=== PATIENT | male | born 1935 | race Two or more races ===

== ENCOUNTER 2017-06-24 11:32 | Inpatient (IN) | payer MEDICARE, MEDICAID ==
[~2017-06-24] VITALS: Ht 165.1 cm; Wt 56.8 kg
[~2017-06-24 11:32] MED LIST: DONE5TAB52 PO; IBUP-1222 PO; LISI-167 PO; MELA1TAB6 PO; TAMS0.4C2 PO
[2017-06-24] MEDS ORDERED: SODIUM CHLORIDE FLUSH 10ML SYR IVF ONE (12:00)
[2017-06-24] MEDS ORDERED: SODIUM CHLORIDE 0.9% 1,000ML IVBOLUS ONE (12:00)
[2017-06-24 12:48] LABS: BASOPHILS # (AUTO) 0.04 x10^3/uL (0-0.1); BASOPHILS % (AUTO) 0 % (0-1); EOSINOPHILS % (AUTO) 0 % (1-7); LYMPHOCYTES % (AUTO) 9 % (22-44); MD NO; MEAN CORPUSCULAR HEMOGLOBIN 31.2 pg (27.5-34.5); MEAN CORPUSCULAR HGB CONC 34.2 g/dL (33.2-36.2); MEAN CORPUSCULAR VOLUME 91.1 fL (81-97); MEAN PLATELET VOLUME 8.7 fL (7.4-10.4); MONOCYTES # (AUTO) 0.88 x10^3/uL (0.2-0.8); MONOCYTES % (AUTO) 8 % (2-9); NEUTROPHILS # (AUTO) 9.14 x10^3/uL (1.8-6.8); NEUTROPHILS % (AUTO) 83 % (42-75); PLATELET COUNT 250 x10^3/uL (130-400); RED BLOOD COUNT 4.76 x10^6/uL (4.38-5.82); RED CELL DISTRIBUTION WIDTH 13.8 % (9.4-14.8)
[2017-06-24 13:01] LABS: ALANINE AMINOTRANSFERASE 33 U/L (12-78); ALBUMIN 3.4 g/dL (3.4-5.0); ANION GAP 10 mmol/L (5-15); CALCIUM 8.9 mg/dL (8.5-10.1); CHLORIDE 108 mmol/L (98-107); CREATININE 1.09 mg/dL (0.7-1.3)
[2017-06-24 13:03] LABS: ALKALINE PHOSPHATASE 105 U/L (45-117); BILIRUBIN,TOTAL 0.8 mg/dL (0.2-1.0); TOTAL PROTEIN 7.4 g/dL (6.4-8.2)
[2017-06-24 15:51] LABS: MICROSCOPIC INDICATED
[2017-06-24 16:11] LABS: CULTURE INDICATED? NO
[2017-06-24] MEDS: NS + 20MEQ KCL 1,000 ML IV SCH (17:26)
[2017-06-24] MEDS: IBUPROFEN 600 MG TABLET PO SCH (17:30)
[2017-06-24] MEDS ORDERED: POLYETHYLENE GLYCOL 17 GM PACKET PO PRN (17:30)
[2017-06-24] MEDS ORDERED: SODIUM CHLORIDE FLUSH 10ML SYR IVF PRN (17:30)
[2017-06-24] MEDS ORDERED: ENALAPRILAT 1.25 MG/ML, 2ML IVPush PRN (17:30)
[2017-06-24] MEDS ORDERED: ONDANSETRON 2MG/ML, 2ML IVPush PRN (17:30)
[2017-06-24] MEDS ORDERED: DOCUSATE 100 MG CAPSULE PO PRN (17:30)
[2017-06-24] MEDS ORDERED: ACETAMINOPHEN 325 MG TABLET PO PRN (17:30)
[2017-06-24] MEDS ORDERED: BISACODYL 10 MG SUPP PR PRN (17:30)
[2017-06-24 18:23] LABS: FOLATE LEVEL 19.2 ng/mL (3.1-17.5)
[2017-06-24] MEDS ORDERED: IBUPROFEN 200 MG TABLET ONE (18:34)
[2017-06-24] MEDS ORDERED: ENOXAPARIN 40 MG/0.4 ML ONE (18:34)
[2017-06-24] MEDS: ENOXAPARIN 40 MG/0.4 ML SQ SCH (18:39)
[2017-06-24 20:30] VITALS: BP 160/82
[2017-06-25] MEDS: LISINOPRIL 10 MG TABLET PO SCH ×3 (01:07→20:13)
[2017-06-25] MEDS: IBUPROFEN 600 MG TABLET PO SCH ×2 (01:07→07:00)
[2017-06-25] MEDS: NS + 20MEQ KCL 1,000 ML IV SCH (01:07)
[2017-06-25 01:10] VITALS: BP 130/72
[2017-06-25 05:59] LABS: CHLORIDE 113 mmol/L (98-107)
[2017-06-25 06:09] LABS: BASOPHILS # (AUTO) 0.02 x10^3/uL (0-0.1); BASOPHILS % (AUTO) 0 % (0-1); EOSINOPHILS # (AUTO) 0.05 x10^3/uL (0-0.4); EOSINOPHILS % (AUTO) 1 % (1-7); LYMPHOCYTES # (AUTO) 1.64 x10^3/uL (1-3.4); LYMPHOCYTES % (AUTO) 21 % (22-44); MD NO; MEAN CORPUSCULAR HEMOGLOBIN 30.9 pg (27.5-34.5); MEAN CORPUSCULAR HGB CONC 33.9 g/dL (33.2-36.2); MEAN CORPUSCULAR VOLUME 91.4 fL (81-97); MEAN PLATELET VOLUME 9.5 fL (7.4-10.4); MONOCYTES # (AUTO) 0.88 x10^3/uL (0.2-0.8); MONOCYTES % (AUTO) 11 % (2-9); NEUTROPHILS % (AUTO) 67 % (42-75); PLATELET COUNT 215 x10^3/uL (130-400); RED BLOOD COUNT 4.24 x10^6/uL (4.38-5.82); RED CELL DISTRIBUTION WIDTH 13.6 % (9.4-14.8)
[2017-06-25 06:22] LABS: ALANINE AMINOTRANSFERASE 39 U/L (12-78); ALBUMIN 2.8 g/dL (3.4-5.0); ALKALINE PHOSPHATASE 85 U/L (45-117); ANION GAP 8 mmol/L (5-15); CREATININE 0.75 mg/dL (0.7-1.3); TOTAL PROTEIN 6.2 g/dL (6.4-8.2)
[2017-06-25] MEDS ORDERED: POTASSIUM CHLORIDE 20 MEQ TAB.ER.PRT PO ONE (09:00)
[2017-06-25 09:11] VITALS: BP 137/77
[2017-06-25] MEDS: TAMSULOSIN 0.4 MG CAP.ER.24H PO SCH (11:42)
[2017-06-25] MEDS: DONEPEZIL 5 MG TABLET PO SCH (11:42)
[2017-06-25 14:48] VITALS: BP 161/82
[2017-06-25] MEDS: ENOXAPARIN 40 MG/0.4 ML SQ SCH (17:30)
[2017-06-25 18:33] VITALS: BP 143/74
[2017-06-26 01:30] VITALS: BP 138/80
[2017-06-26 07:14] VITALS: BP 178/88
[2017-06-26] MEDS: DONEPEZIL 5 MG TABLET PO SCH (09:22)
[2017-06-26] MEDS: TAMSULOSIN 0.4 MG CAP.ER.24H PO SCH (09:22)
[2017-06-26] MEDS: LISINOPRIL 10 MG TABLET PO SCH ×2 (09:22→21:20)
[2017-06-26 14:55] VITALS: BP 152/75
[2017-06-26] MEDS: ENOXAPARIN 40 MG/0.4 ML SQ SCH (17:25)
[2017-06-26 19:44] VITALS: BP 158/82
[2017-06-26] MEDS ORDERED: DIPHENHYDRAMINE 25 MG CAPSULE ONE (21:41)
[2017-06-26] MEDS ORDERED: DIPHENHYDRAMINE 25 MG CAPSULE PO ONE (22:00)
[2017-06-26] MEDS ORDERED: ZIPRASIDONE 20 MG INJ IM ONE (22:30)
[2017-06-26 23:26] VITALS: BP 160/85
[2017-06-27 08:20] VITALS: BP 154/77
[2017-06-27] MEDS: DONEPEZIL 5 MG TABLET PO SCH (08:47)
[2017-06-27] MEDS: TAMSULOSIN 0.4 MG CAP.ER.24H PO SCH (08:47)
[2017-06-27] MEDS: LISINOPRIL 10 MG TABLET PO SCH ×2 (08:48→19:39)
[2017-06-27 14:11] VITALS: BP 131/71
[2017-06-27] MEDS: ENOXAPARIN 40 MG/0.4 ML SQ SCH (17:31)
[2017-06-27 19:37] VITALS: BP 145/74
[2017-06-28 02:46] VITALS: BP 160/78
[2017-06-28 06:50] VITALS: BP 165/84
[2017-06-28] MEDS: TAMSULOSIN 0.4 MG CAP.ER.24H PO SCH (09:15)
[2017-06-28] MEDS: DONEPEZIL 5 MG TABLET PO SCH (09:15)
[2017-06-28] MEDS: LISINOPRIL 10 MG TABLET PO SCH ×2 (09:15→20:55)
[2017-06-28 14:28] VITALS: BP 123/66
[2017-06-28] MEDS: ENOXAPARIN 40 MG/0.4 ML SQ SCH (17:54)
[2017-06-28 19:29] VITALS: BP 142/72
[2017-06-29 01:45] VITALS: BP 172/87
[2017-06-29 07:12] VITALS: BP 175/87
[2017-06-29] MEDS: TAMSULOSIN 0.4 MG CAP.ER.24H PO SCH (08:59)
[2017-06-29] MEDS: DONEPEZIL 5 MG TABLET PO SCH (08:59)
[2017-06-29] MEDS: LISINOPRIL 10 MG TABLET PO SCH (09:00)
[2017-06-29 12:54] VITALS: BP 156/76
[2017-06-29] MEDS: ENOXAPARIN 40 MG/0.4 ML SQ SCH (17:10)
[2017-06-29 19:22] VITALS: BP 149/72
== END 2017-06-29 20:40 | disposition home or self-care (01) | DRG 884 ==
LOC: ED 16:04 → EDIP 17:13 → 3NE 21:00
PROVIDERS: ADMIT Hospitalist; ATTEND Hospitalist
DX: F03.90 Unspecified dementia, unspecified severity, without behavioral disturbance, psychotic disturbance, mood disturbance, and anxiety (principal); E86.0 Dehydration; D64.9 Anemia, unspecified; E44.1 Mild protein-calorie malnutrition; D72.828 Other elevated white blood cell count; S00.93XA Contusion of unspecified part of head, initial encounter; R31.9 Hematuria, unspecified; R29.6 Repeated falls; I11.9 Hypertensive heart disease without heart failure; K76.0 Fatty (change of) liver, not elsewhere classified; Z82.49 Family history of ischemic heart disease and other diseases of the circulatory system; Z85.038 Personal history of other malignant neoplasm of large intestine; Z87.891 Personal history of nicotine dependence; Z68.20 Body mass index [BMI] 20.0-20.9, adult
CPT/HCPCS: 36415; 70450; 70486; 71045; 72125; 76700; 80053; 81001; 82607; 82746; 84443; 85014; 85018; 85025; 93005; 96372; 96374; J1650; J3480; J7030; Q0163

== ENCOUNTER 2017-10-18 19:06 | Inpatient (IN) | payer MEDICARE, MEDICAID ==
[~2017-10-18] VITALS: Ht 170.2 cm; Wt 54.9 kg
[2017-10-18 19:53] LABS: MEAN CORPUSCULAR HEMOGLOBIN 30.6 pg (27.5-34.5); MEAN CORPUSCULAR HGB CONC 33.6 g/dL (33.2-36.2); MEAN CORPUSCULAR VOLUME 90.8 fL (81-97); MEAN PLATELET VOLUME 7.6 fL (7.4-10.4); PLATELET COUNT 366 x10^3/uL (130-400); RED BLOOD COUNT 4.04 x10^6/uL (4.38-5.82); RED CELL DISTRIBUTION WIDTH 13.8 % (9.4-14.8)
[2017-10-18 20:01] LABS: ALBUMIN 2.4 g/dL (3.4-5.0); ANION GAP 10 mmol/L (5-15); CALCIUM 7.7 mg/dL (8.5-10.1); CHLORIDE 106 mmol/L (98-107); CREATININE 2.54 mg/dL (0.7-1.3)
[2017-10-18] MEDS ORDERED: vancomycin PO (20:11)
[2017-10-18] MEDS ORDERED: QUET25TA5 PO (20:11)
[2017-10-18] MEDS ORDERED: SODIUM CHLORIDE 0.9% 1,000ML IVBOLUS ONE ×2 (20:30→21:30)
[2017-10-18 20:45] LABS: MD YES
[2017-10-18 20:48] LABS: BAND#(MANUAL) 3.55 x10^3/uL; BANDS%(MANUAL) 18 % (0-7); LYMPH#(MANUAL) 1.18 x10^3/uL (1-3.4); LYMPHS% (MANUAL) 6 % (22-44); MONOS#(MANUAL) 0.39 x10^3/uL (0.3-2.7); MONOS% (MANUAL) 2 % (2-9); SEGS% (MANUAL) 74 % (42-75)
[2017-10-18 20:50] LABS: <PLATELET ESTIMATE> ADEQUATE; <PLT MORPHOLOGY> NORMAL PLT MORPH; <RBC MORPHOLOGY> NORMAL
[2017-10-18 20:56] LABS: MICROSCOPIC INDICATED
[2017-10-18 20:57] LABS: CULTURE INDICATED? YES
[2017-10-18] MEDS ORDERED: PIPERACILLIN/TAZO/PMX 3.375GM 50 ML ONE (21:27)
[2017-10-18] MEDS ORDERED: PIPERACILLIN/TAZO/PMX 3.375GM 50 ML IVPB ONE (21:30)
[2017-10-18] MEDS ORDERED: VANCOMYCIN PER PHARMACY MC ONE (21:30)
[2017-10-18] MEDS ORDERED: SODIUM CHLORIDE 0.9% 1,000 ML IV ONE (21:48)
[2017-10-18] MEDS ORDERED: PHARMACOKINETIC MONITORING MC PRN (22:00)
[2017-10-18] MEDS ORDERED: VANCOMYCIN 1,200 MG in SODIUM CHLORIDE 0.9% 250 ML IV ONE (22:00)
[2017-10-18] MEDS ORDERED: VANCOMYCIN PO SCH (23:00)
[2017-10-18] MEDS ORDERED: ONDANSETRON 2MG/ML, 2ML IVPush PRN (23:00)
[2017-10-18] MEDS ORDERED: ACETAMINOPHEN 325 MG TABLET PO PRN (23:00)
[2017-10-18] MEDS: D5%-0.9% NACL 1,000 ML IV SCH (23:07)
[2017-10-18 23:09] VITALS: BP 136/82
[2017-10-18] MEDS: VANCOMYCIN 50 MG/ML ORAL SUSP PO SCH (23:59)
[2017-10-19 01:16] VITALS: BP 147/79
[2017-10-19 02:41] LABS: CLOSTRIDIUM DIFFICILE ANTIGEN NEGATIVE; CLOSTRIDIUM DIFFICILE TOXIN NEGATIVE (Negative)
[2017-10-19] MEDS: VANCOMYCIN 50 MG/ML ORAL SUSP PO SCH ×3 (05:12→18:22)
[2017-10-19 05:46] LABS: BASOPHILS # (AUTO) 0.04 x10^3/uL (0-0.1); BASOPHILS % (AUTO) 0 % (0-1); EOSINOPHILS # (AUTO) 0.04 x10^3/uL (0-0.4); EOSINOPHILS % (AUTO) 0 % (1-7); LYMPHOCYTES # (AUTO) 1.05 x10^3/uL (1-3.4); LYMPHOCYTES % (AUTO) 6 % (22-44); MD NO; MEAN CORPUSCULAR HEMOGLOBIN 30.9 pg (27.5-34.5); MEAN CORPUSCULAR HGB CONC 33.9 g/dL (33.2-36.2); MEAN CORPUSCULAR VOLUME 91.1 fL (81-97); MEAN PLATELET VOLUME 7.9 fL (7.4-10.4); MONOCYTES # (AUTO) 0.84 x10^3/uL (0.2-0.8); MONOCYTES % (AUTO) 5 % (2-9); NEUTROPHILS # (AUTO) 14.43 x10^3/uL (1.8-6.8); NEUTROPHILS % (AUTO) 88 % (42-75); PLATELET COUNT 362 x10^3/uL (130-400); RED BLOOD COUNT 3.62 x10^6/uL (4.38-5.82); RED CELL DISTRIBUTION WIDTH 13.7 % (9.4-14.8)
[2017-10-19 05:55] LABS: ALBUMIN 2.1 g/dL (3.4-5.0); ANION GAP 8 mmol/L (5-15); CALCIUM 7.2 mg/dL (8.5-10.1); CHLORIDE 112 mmol/L (98-107)
[2017-10-19 05:59] LABS: ALANINE AMINOTRANSFERASE 21 U/L (12-78); ALKALINE PHOSPHATASE 75 U/L (45-117); BILIRUBIN,TOTAL 0.5 mg/dL (0.2-1.0); CREATININE 1.74 mg/dL (0.7-1.3); TOTAL PROTEIN 5.4 g/dL (6.4-8.2)
[2017-10-19 07:22] VITALS: BP 142/83
[2017-10-19] MEDS: QUETIAPINE 25MG TABLET PO SCH (08:19)
[2017-10-19] MEDS: HEPARIN 5,000 UNITS/ML, 1ML SQ SCH ×2 (08:19→20:38)
[2017-10-19] MEDS: D5%-0.9% NACL 1,000 ML IV SCH ×2 (08:19→20:43)
[2017-10-19] MEDS: POTASSIUM CHLORIDE 20 MEQ PACKET PO SCH ×2 (10:27→20:37)
[2017-10-19 14:12] VITALS: BP 139/86
[2017-10-19 20:48] VITALS: BP 156/83
[2017-10-20 00:55] VITALS: BP 142/72
[2017-10-20] MEDS: VANCOMYCIN 50 MG/ML ORAL SUSP PO SCH ×4 (00:59→18:02)
[2017-10-20] MEDS: D5%-0.9% NACL 1,000 ML IV SCH ×2 (06:18→17:00)
[2017-10-20 06:50] VITALS: BP 139/78
[2017-10-20 09:26] LABS: ANION GAP 4 mmol/L (5-15); CALCIUM 7.2 mg/dL (8.5-10.1); CHLORIDE 114 mmol/L (98-107)
[2017-10-20 09:36] LABS: BASOPHILS # (AUTO) 0.02 x10^3/uL (0-0.1); BASOPHILS % (AUTO) 0 % (0-1); EOSINOPHILS # (AUTO) 0.05 x10^3/uL (0-0.4); EOSINOPHILS % (AUTO) 1 % (1-7); LYMPHOCYTES # (AUTO) 1.16 x10^3/uL (1-3.4); LYMPHOCYTES % (AUTO) 17 % (22-44); MD SCAN; MEAN CORPUSCULAR HEMOGLOBIN 30.1 pg (27.5-34.5); MEAN CORPUSCULAR HGB CONC 33.3 g/dL (33.2-36.2); MEAN CORPUSCULAR VOLUME 90.2 fL (81-97); MEAN PLATELET VOLUME 7.4 fL (7.4-10.4); MONOCYTES # (AUTO) 0.49 x10^3/uL (0.2-0.8); MONOCYTES % (AUTO) 7 % (2-9); NEUTROPHILS # (AUTO) 5.27 x10^3/uL (1.8-6.8); NEUTROPHILS % (AUTO) 75 % (42-75); PLATELET COUNT 316 x10^3/uL (130-400); RED BLOOD COUNT 3.66 x10^6/uL (4.38-5.82); RED CELL DISTRIBUTION WIDTH 13.4 % (9.4-14.8)
[2017-10-20] MEDS: HEPARIN 5,000 UNITS/ML, 1ML SQ SCH ×2 (10:15→20:57)
[2017-10-20] MEDS: POTASSIUM CHLORIDE 20 MEQ PACKET PO SCH ×2 (10:15→20:57)
[2017-10-20] MEDS: QUETIAPINE 25MG TABLET PO SCH (10:15)
[2017-10-20] MEDS ORDERED: CEFTRIAXONE PMX 1GM/50ML 50 ML IV SCH (13:00)
[2017-10-20 13:43] VITALS: BP 134/83
[2017-10-20 20:00] VITALS: BP 176/95
[2017-10-21] MEDS: VANCOMYCIN 50 MG/ML ORAL SUSP PO SCH ×2 (00:25→05:24)
[2017-10-21] MEDS: D5%-0.9% NACL 1,000 ML IV SCH (00:31)
[2017-10-21 01:22] VITALS: BP 176/91
[2017-10-21 07:04] VITALS: BP 168/83
[2017-10-21 09:05] LABS: BASOPHILS # (AUTO) 0.02 x10^3/uL (0-0.1); BASOPHILS % (AUTO) 0 % (0-1); EOSINOPHILS # (AUTO) 0.07 x10^3/uL (0-0.4); EOSINOPHILS % (AUTO) 1 % (1-7); LYMPHOCYTES # (AUTO) 1.16 x10^3/uL (1-3.4); LYMPHOCYTES % (AUTO) 21 % (22-44); MD NO; MEAN CORPUSCULAR HEMOGLOBIN 30.3 pg (27.5-34.5); MEAN CORPUSCULAR HGB CONC 33.5 g/dL (33.2-36.2); MEAN CORPUSCULAR VOLUME 90.4 fL (81-97); MEAN PLATELET VOLUME 7.9 fL (7.4-10.4); MONOCYTES # (AUTO) 0.52 x10^3/uL (0.2-0.8); MONOCYTES % (AUTO) 10 % (2-9); NEUTROPHILS % (AUTO) 68 % (42-75); PLATELET COUNT 343 x10^3/uL (130-400); RED BLOOD COUNT 3.97 x10^6/uL (4.38-5.82); RED CELL DISTRIBUTION WIDTH 13.5 % (9.4-14.8)
[2017-10-21] MEDS: QUETIAPINE 25MG TABLET PO SCH (09:06)
[2017-10-21] MEDS: HEPARIN 5,000 UNITS/ML, 1ML SQ SCH (09:06)
[2017-10-21] MEDS: POTASSIUM CHLORIDE 20 MEQ PACKET PO SCH (09:06)
[2017-10-21 09:15] LABS: ALBUMIN 2.2 g/dL (3.4-5.0); ANION GAP 5 mmol/L (5-15); CALCIUM 7.5 mg/dL (8.5-10.1); CHLORIDE 112 mmol/L (98-107); CREATININE 0.68 mg/dL (0.7-1.3)
[2017-10-21] MEDS ORDERED: SULF1TAB24 PO (10:07)
== END 2017-10-21 14:42 | DRG 871 ==
LOC: SUATTDRO 22:02 → ED 22:14 → EDIP 22:15 → 4EST 22:40
PROVIDERS: ADMIT Hospitalist; ATTEND Hospitalist
DX: A41.9 Sepsis, unspecified organism (principal); N17.0 Acute kidney failure with tubular necrosis; E43 Unspecified severe protein-calorie malnutrition; R57.9 Shock, unspecified; J18.9 Pneumonia, unspecified organism; A04.72 Enterocolitis due to Clostridium difficile, not specified as recurrent; S09.90XA Unspecified injury of head, initial encounter; D63.8 Anemia in other chronic diseases classified elsewhere; F03.90 Unspecified dementia, unspecified severity, without behavioral disturbance, psychotic disturbance, mood disturbance, and anxiety; N39.0 Urinary tract infection, site not specified; Z68.1 Body mass index [BMI] 19.9 or less, adult; R65.10 Systemic inflammatory response syndrome (SIRS) of non-infectious origin without acute organ dysfunction; W01.0XXA Fall on same level from slipping, tripping and stumbling without subsequent striking against object, initial encounter; E87.6 Hypokalemia; B96.1 Klebsiella pneumoniae [K. pneumoniae] as the cause of diseases classified elsewhere; S00.212A Abrasion of left eyelid and periocular area, initial encounter; M19.90 Unspecified osteoarthritis, unspecified site; S80.212A Abrasion, left knee, initial encounter; S80.211A Abrasion, right knee, initial encounter; R29.6 Repeated falls; I10 Essential (primary) hypertension; Z82.49 Family history of ischemic heart disease and other diseases of the circulatory system; Z85.038 Personal history of other malignant neoplasm of large intestine; Y93.89 Activity, other specified; Y92.89 Other specified places as the place of occurrence of the external cause; Y99.8 Other external cause status; Z66 Do not resuscitate
CPT/HCPCS: 36415; 70450; 71045; 72125; 80048; 80053; 81001; 82040; 83605; 83735; 84100; 84145; 85025; 87040; 87077; 87086; 87186; 87324; 96361; 96365; J0696; J1644; J2543; J3370; J7042; J7030

== ENCOUNTER 2017-11-11 16:28 | Inpatient (IN) | payer MEDICARE, MEDICAID ==
[~2017-11-11] VITALS: Ht 160 cm; Wt 50.6 kg
[~2017-11-11 16:28] MED LIST changes: +QUET25TA5 PO; +SULF1TAB24 PO; +vancomycin PO
[2017-11-11 17:48] LABS: BASOPHILS # (AUTO) 0.03 x10^3/uL (0-0.1); BASOPHILS % (AUTO) 0 % (0-1); EOSINOPHILS # (AUTO) 0.21 x10^3/uL (0-0.4); EOSINOPHILS % (AUTO) 3 % (1-7); LYMPHOCYTES # (AUTO) 1.42 x10^3/uL (1-3.4); LYMPHOCYTES % (AUTO) 21 % (22-44); MEAN CORPUSCULAR HEMOGLOBIN 30.5 pg (27.5-34.5); MEAN CORPUSCULAR HGB CONC 33.1 g/dL (33.2-36.2); MEAN CORPUSCULAR VOLUME 91.9 fL (81-97); MEAN PLATELET VOLUME 8.4 fL (7.4-10.4); MONOCYTES # (AUTO) 0.78 x10^3/uL (0.2-0.8); MONOCYTES % (AUTO) 12 % (2-9); NEUTROPHILS % (AUTO) 64 % (42-75); PLATELET COUNT 349 x10^3/uL (130-400); RED BLOOD COUNT 4.38 x10^6/uL (4.38-5.82); RED CELL DISTRIBUTION WIDTH 14.5 % (9.4-14.8)
[2017-11-11 17:49] LABS: MD NO
[2017-11-11 17:53] LABS: ALBUMIN 2.7 g/dL (3.4-5.0); ANION GAP 7 mmol/L (5-15); CALCIUM 8.5 mg/dL (8.5-10.1); CHLORIDE 108 mmol/L (98-107)
[2017-11-11 17:59] LABS: CREATININE 1.23 mg/dL (0.7-1.3)
[2017-11-11] MEDS ORDERED: OMNIPAQUE 350 MG/ML, 100ML BOTTLE ONE (19:00)
[2017-11-11] MEDS ORDERED: CEFTRIAXONE PMX 1GM/50ML 50 ML IVPB ONE (19:30)
[2017-11-11] MEDS ORDERED: AZITHROMYCIN 500 MG in SODIUM CHLORIDE 0.9% 250 ML IVPB ONE (19:30)
[2017-11-11] MEDS ORDERED: CEFTRIAXONE PMX 1GM/50ML 50 ML ONE (19:33)
[2017-11-11] MEDS ORDERED: SODIUM CHLORIDE FLUSH 10ML SYR IVF PRN (20:00)
[2017-11-11] MEDS ORDERED: NS + 20MEQ KCL 1,000 ML IV SCH (20:09)
[2017-11-11] MEDS ORDERED: ONDANSETRON 2MG/ML, 2ML IVPush PRN (20:30)
[2017-11-11] MEDS ORDERED: POLYETHYLENE GLYCOL 17 GM PACKET PO PRN (20:30)
[2017-11-11] MEDS ORDERED: ACETAMINOPHEN 325 MG TABLET PO PRN (20:30)
[2017-11-11] MEDS ORDERED: morphine SULFATE 10 MG/ML, 1ML IVPush PRN (20:30)
[2017-11-11] MEDS ORDERED: HYDROcodone/APAP 5/325 TABLET PO PRN (20:30)
[2017-11-11] MEDS ORDERED: DOCUSATE 100 MG CAPSULE PO PRN (20:30)
[2017-11-11 20:50] VITALS: BP 161/84
[2017-11-11] MEDS: VANCOMYCIN 50 MG/ML ORAL SUSP PO SCH (22:13)
[2017-11-11] MEDS: ENOXAPARIN 40 MG/0.4 ML SQ SCH (22:14)
[2017-11-11] MEDS: LISINOPRIL 10 MG TABLET PO SCH (22:14)
[2017-11-11 23:35] VITALS: BP 161/84
[2017-11-12 01:50] VITALS: BP_SYST 156; BP_SYST 161; BP_DIAS 80; BP_DIAS 84
[2017-11-12] MEDS: VANCOMYCIN 50 MG/ML ORAL SUSP PO SCH ×4 (02:34→20:54)
[2017-11-12 07:38] VITALS: BP 166/86
[2017-11-12] MEDS: LISINOPRIL 10 MG TABLET PO SCH ×2 (09:10→20:55)
[2017-11-12] MEDS: SENNA/DOCUSATE TABLET PO SCH (09:10)
[2017-11-12 09:26] LABS: INTERNATIONAL NORMALIZED RATIO 1.24 (0.93-1.1); PROTHROMBIN TIME 12.7 Seconds (9.6-11.5)
[2017-11-12 15:32] VITALS: BP 172/83
[2017-11-12 16:10] VITALS: BP 149/79
[2017-11-12 20:21] VITALS: BP 179/87
[2017-11-12] MEDS: ENOXAPARIN 40 MG/0.4 ML SQ SCH (20:30)
[2017-11-12] MEDS: CEFTRIAXONE PMX 1GM/50ML 50 ML IV SCH (20:54)
[2017-11-12] MEDS: AZITHROMYCIN 500 MG in SODIUM CHLORIDE 0.9% 250 ML IV SCH (22:00)
[2017-11-13 00:49] VITALS: BP 152/74
[2017-11-13] MEDS: VANCOMYCIN 50 MG/ML ORAL SUSP PO SCH ×4 (03:32→20:47)
[2017-11-13] MEDS: SENNA/DOCUSATE TABLET PO SCH (08:34)
[2017-11-13 08:46] VITALS: BP 154/85
[2017-11-13] MEDS: LISINOPRIL 10 MG TABLET PO SCH ×2 (08:49→20:47)
[2017-11-13 14:23] VITALS: BP 159/78
[2017-11-13] MEDS: LACTOBACILLUS CHEW TABLET PO SCH ×2 (17:23→20:47)
[2017-11-13 20:31] VITALS: BP 159/88
[2017-11-13] MEDS: ENOXAPARIN 40 MG/0.4 ML SQ SCH (20:47)
[2017-11-13] MEDS: CEFTRIAXONE PMX 1GM/50ML 50 ML IV SCH (20:47)
[2017-11-13] MEDS: AZITHROMYCIN 500 MG in SODIUM CHLORIDE 0.9% 250 ML IV SCH (22:24)
[2017-11-14 00:13] VITALS: BP 131/76
[2017-11-14] MEDS: VANCOMYCIN 50 MG/ML ORAL SUSP PO SCH ×4 (01:56→20:45)
[2017-11-14] MEDS ORDERED: ZIPRASIDONE 20 MG INJ IM ONE (04:30)
[2017-11-14 07:05] VITALS: BP 151/81
[2017-11-14] MEDS: SENNA/DOCUSATE TABLET PO SCH (08:41)
[2017-11-14] MEDS: LACTOBACILLUS CHEW TABLET PO SCH ×3 (08:41→20:44)
[2017-11-14] MEDS: LISINOPRIL 10 MG TABLET PO SCH ×2 (08:42→20:45)
[2017-11-14] MEDS ORDERED: ACID1TAB7 PO (13:29)
[2017-11-14 14:06] VITALS: BP 150/76
[2017-11-14 19:40] VITALS: BP 166/86
[2017-11-14] MEDS: ENOXAPARIN 40 MG/0.4 ML SQ SCH (20:44)
[2017-11-14] MEDS: AZITHROMYCIN 500 MG in SODIUM CHLORIDE 0.9% 250 ML IV SCH (20:45)
[2017-11-14] MEDS: CEFTRIAXONE PMX 1GM/50ML 50 ML IV SCH (22:02)
[2017-11-15 01:21] VITALS: BP 165/89
[2017-11-15] MEDS: VANCOMYCIN 50 MG/ML ORAL SUSP PO SCH ×4 (02:30→22:47)
[2017-11-15] MEDS: LISINOPRIL 10 MG TABLET PO SCH ×2 (08:23→22:47)
[2017-11-15] MEDS: SENNA/DOCUSATE TABLET PO SCH (08:23)
[2017-11-15] MEDS: LACTOBACILLUS CHEW TABLET PO SCH ×3 (08:23→22:47)
[2017-11-15 09:23] VITALS: BP 153/78
[2017-11-15] MEDS ORDERED: CEFD300C37 PO (13:13)
[2017-11-15 14:35] VITALS: BP 134/74
[2017-11-15 19:49] VITALS: BP 154/73
[2017-11-15] MEDS: ENOXAPARIN 40 MG/0.4 ML SQ SCH (22:46)
[2017-11-15] MEDS: CEFTRIAXONE PMX 1GM/50ML 50 ML IV SCH (22:46)
[2017-11-15] MEDS: AZITHROMYCIN 500 MG in SODIUM CHLORIDE 0.9% 250 ML IV SCH (23:34)
[2017-11-16 01:12] VITALS: BP 158/83
[2017-11-16] MEDS: VANCOMYCIN 50 MG/ML ORAL SUSP PO SCH ×4 (03:27→20:27)
[2017-11-16 07:06] VITALS: BP 174/81
[2017-11-16] MEDS: LACTOBACILLUS CHEW TABLET PO SCH ×3 (08:48→20:26)
[2017-11-16] MEDS: SENNA/DOCUSATE TABLET PO SCH (08:48)
[2017-11-16] MEDS: LISINOPRIL 10 MG TABLET PO SCH ×2 (08:49→20:27)
[2017-11-16 12:43] VITALS: BP 152/80
[2017-11-16 19:26] VITALS: BP 162/70
[2017-11-16] MEDS: CEFTRIAXONE PMX 1GM/50ML 50 ML IV SCH (20:26)
[2017-11-16] MEDS: ENOXAPARIN 40 MG/0.4 ML SQ SCH (20:27)
[2017-11-16] MEDS: AZITHROMYCIN 500 MG in SODIUM CHLORIDE 0.9% 250 ML IV SCH (23:07)
[2017-11-17] MEDS: VANCOMYCIN 50 MG/ML ORAL SUSP PO SCH ×3 (02:18→14:50)
[2017-11-17 02:44] VITALS: BP 134/84
[2017-11-17 08:45] VITALS: BP 136/73
[2017-11-17] MEDS: LACTOBACILLUS CHEW TABLET PO SCH (08:47)
[2017-11-17] MEDS: SENNA/DOCUSATE TABLET PO SCH (08:47)
[2017-11-17] MEDS: LISINOPRIL 10 MG TABLET PO SCH (08:54)
[2017-11-17] MEDS ORDERED: VANC1VIA3 PO (12:08)
[2017-11-17] MEDS ORDERED: AZIT500T5 PO (12:10)
[2017-11-17 14:00] VITALS: BP 171/82
== END 2017-11-17 17:14 | DRG 193 ==
LOC: ED 19:30 → EDIP 19:54 → 3NE 20:31
PROVIDERS: ADMIT Family Medicine; ATTEND Internal Medicine
DX: J18.1 Lobar pneumonia, unspecified organism (principal); E43 Unspecified severe protein-calorie malnutrition; S22.42XA Multiple fractures of ribs, left side, initial encounter for closed fracture; C64.2 Malignant neoplasm of left kidney, except renal pelvis; Z94.0 Kidney transplant status; Z68.1 Body mass index [BMI] 19.9 or less, adult; R29.6 Repeated falls; Z66 Do not resuscitate; I10 Essential (primary) hypertension; F03.90 Unspecified dementia, unspecified severity, without behavioral disturbance, psychotic disturbance, mood disturbance, and anxiety; Z85.038 Personal history of other malignant neoplasm of large intestine; Z91.81 History of falling; Z82.49 Family history of ischemic heart disease and other diseases of the circulatory system; Y93.89 Activity, other specified; Y92.89 Other specified places as the place of occurrence of the external cause; Y99.8 Other external cause status; Z90.49 Acquired absence of other specified parts of digestive tract; N28.89 Other specified disorders of kidney and ureter
CPT/HCPCS: 36415; 71045; 71260; 80048; 82040; 83605; 84145; 85025; 85610; 87040; 99285; J0456; J0696; J1650; J3370; J3480; Q9967; J7050

== ENCOUNTER 2017-12-29 16:13 | Inpatient (IN) | payer MEDICARE, MEDICAID ==
[~2017-12-29] VITALS: Ht 167.6 cm; Wt 55.0 kg
[~2017-12-29 16:13] MED LIST changes: +ACID1TAB7 PO; +AZIT500T5 PO; +CEFD300C37 PO; +VANC1VIA3 PO
[2017-12-29] MEDS ORDERED: FAMOTIDINE 20 MG/2 ML ONE (17:31)
[2017-12-29] MEDS ORDERED: ONDANSETRON 2MG/ML, 2ML ONE ×2 (17:31→18:06)
[2017-12-29 17:48] LABS: BASOPHILS # (AUTO) 0.03 x10^3/uL (0-0.1); BASOPHILS % (AUTO) 0 % (0-1); EOSINOPHILS % (AUTO) 0 % (1-7); LYMPHOCYTES # (AUTO) 0.63 x10^3/uL (1-3.4); LYMPHOCYTES % (AUTO) 6 % (22-44); MD NO; MEAN CORPUSCULAR HEMOGLOBIN 29.8 pg (27.5-34.5); MEAN CORPUSCULAR HGB CONC 33.4 g/dL (33.2-36.2); MEAN CORPUSCULAR VOLUME 89.2 fL (81-97); MEAN PLATELET VOLUME 8.6 fL (7.4-10.4); MONOCYTES # (AUTO) 0.99 x10^3/uL (0.2-0.8); MONOCYTES % (AUTO) 9 % (2-9); NEUTROPHILS # (AUTO) 9.62 x10^3/uL (1.8-6.8); NEUTROPHILS % (AUTO) 85 % (42-75); PLATELET COUNT 317 x10^3/uL (130-400); RED BLOOD COUNT 4.65 x10^6/uL (4.38-5.82); RED CELL DISTRIBUTION WIDTH 14.7 % (9.4-14.8)
[2017-12-29] MEDS ORDERED: ONDA4TAB7 PO (17:51)
[2017-12-29] MEDS ORDERED: LOSA25TA5 PO (17:51)
[2017-12-29] MEDS ORDERED: VANCOMYCIN PO (17:51)
[2017-12-29] MEDS ORDERED: CHOL5000 PO (17:51)
[2017-12-29 17:53] LABS: ALANINE AMINOTRANSFERASE 39 U/L (12-78); ALBUMIN 3.2 g/dL (3.4-5.0); ANION GAP 5 mmol/L (5-15); CALCIUM 9.2 mg/dL (8.5-10.1); CHLORIDE 103 mmol/L (98-107); CREATININE 1.35 mg/dL (0.7-1.3)
[2017-12-29 17:55] LABS: ALKALINE PHOSPHATASE 102 U/L (45-117); BILIRUBIN,TOTAL 0.6 mg/dL (0.2-1.0); TOTAL PROTEIN 7.5 g/dL (6.4-8.2)
[2017-12-29 17:56] LABS: INTERNATIONAL NORMALIZED RATIO 1.14 (0.93-1.1); PROTHROMBIN TIME 11.8 Seconds (9.6-11.5)
[2017-12-29] MEDS ORDERED: SODIUM CHLORIDE 0.9% 1,000ML IVBOLUS ONE (18:00)
[2017-12-29] MEDS ORDERED: ONDANSETRON 2MG/ML, 2ML IVPush ONE (18:00)
[2017-12-29] MEDS ORDERED: FAMOTIDINE 20 MG/2 ML IVP ONE (18:00)
[2017-12-29] MEDS ORDERED: OMNIPAQUE 350 MG/ML, 100ML BOTTLE ONE (18:31)
[2017-12-29] MEDS ORDERED: SODIUM CHLORIDE 0.9% 1,000 ML IV SCH (20:44)
[2017-12-29] MEDS ORDERED: morphine SULFATE 10 MG/ML, 1ML IVPush PRN (21:00)
[2017-12-29] MEDS: VANCOMYCIN 50 MG/ML ORAL SUSP PO SCH (21:00)
[2017-12-29] MEDS ORDERED: ONDANSETRON 2MG/ML, 2ML IVPush PRN (21:00)
[2017-12-30] VITALS (10 sets, daily range): BP systolic 135–208; BP diastolic 73–103
[2017-12-30 06:17] LABS: BASOPHILS # (AUTO) 0.02 x10^3/uL (0-0.1); BASOPHILS % (AUTO) 0 % (0-1); EOSINOPHILS % (AUTO) 0 % (1-7); LYMPHOCYTES # (AUTO) 1.02 x10^3/uL (1-3.4); LYMPHOCYTES % (AUTO) 11 % (22-44); MD NO; MEAN CORPUSCULAR HEMOGLOBIN 29.8 pg (27.5-34.5); MEAN CORPUSCULAR HGB CONC 33.5 g/dL (33.2-36.2); MEAN CORPUSCULAR VOLUME 89.1 fL (81-97); MEAN PLATELET VOLUME 8.1 fL (7.4-10.4); MONOCYTES # (AUTO) 1.15 x10^3/uL (0.2-0.8); MONOCYTES % (AUTO) 13 % (2-9); NEUTROPHILS # (AUTO) 6.93 x10^3/uL (1.8-6.8); NEUTROPHILS % (AUTO) 76 % (42-75); PLATELET COUNT 298 x10^3/uL (130-400); RED BLOOD COUNT 4.21 x10^6/uL (4.38-5.82); RED CELL DISTRIBUTION WIDTH 15.1 % (9.4-14.8)
[2017-12-30 06:28] LABS: CHLORIDE 110 mmol/L (98-107)
[2017-12-30 06:37] LABS: ALANINE AMINOTRANSFERASE 31 U/L (12-78); ALBUMIN 2.7 g/dL (3.4-5.0); ALKALINE PHOSPHATASE 89 U/L (45-117); ANION GAP 8 mmol/L (5-15); BILIRUBIN,TOTAL 0.7 mg/dL (0.2-1.0); CALCIUM 8.9 mg/dL (8.5-10.1); CREATININE 0.99 mg/dL (0.7-1.3); TOTAL PROTEIN 6.6 g/dL (6.4-8.2)
[2017-12-30 07:29] LABS: HEMOGLOBIN A1C 5.4 % (4.2-6.3)
[2017-12-30] MEDS: POTASSIUM CHLORIDE 20 MEQ in LACTATED RINGERS 1,000 ML IV SCH ×2 (07:35→16:04)
[2017-12-30] MEDS: FAMOTIDINE 20 MG/2 ML IVPush SCH ×2 (08:29→20:12)
[2017-12-30] MEDS ORDERED: VANCOMYCIN 125 MG PO SCH (09:00)
[2017-12-30] MEDS: LABETALOL 5MG/ML, 20ML IVPush PRN ×2 (13:17→21:40)
[2017-12-30] MEDS ORDERED: LIDOCAINE GEL 2%, 5ML ONE ×2 (14:04→17:15)
[2017-12-30] MEDS ORDERED: BENZOCAINE 20% SPRAY 0.5ML ONE ×2 (14:04→17:15)
[2017-12-30] MEDS: VANCOMYCIN 50 MG/ML ORAL SUSP PO SCH ×2 (14:30→20:12)
[2017-12-30] MEDS: ENALAPRILAT 1.25 MG/ML, 2ML IVPush PRN (16:12)
[2017-12-31] VITALS (12 sets, daily range): BP systolic 154–220; BP diastolic 80–101
[2017-12-31] MEDS: LORazepam 2 MG/ML, 1ML IVPush PRN ×2 (05:01→19:56)
[2017-12-31 05:32] LABS: BASOPHILS # (AUTO) 0.02 x10^3/uL (0-0.1); BASOPHILS % (AUTO) 0 % (0-1); EOSINOPHILS # (AUTO) 0.01 x10^3/uL (0-0.4); EOSINOPHILS % (AUTO) 0 % (1-7); LYMPHOCYTES # (AUTO) 1.31 x10^3/uL (1-3.4); LYMPHOCYTES % (AUTO) 16 % (22-44); MD NO; MEAN CORPUSCULAR HEMOGLOBIN 29.9 pg (27.5-34.5); MEAN CORPUSCULAR HGB CONC 33.2 g/dL (33.2-36.2); MEAN PLATELET VOLUME 8.5 fL (7.4-10.4); MONOCYTES # (AUTO) 1.03 x10^3/uL (0.2-0.8); MONOCYTES % (AUTO) 12 % (2-9); NEUTROPHILS # (AUTO) 6.03 x10^3/uL (1.8-6.8); NEUTROPHILS % (AUTO) 72 % (42-75); PLATELET COUNT 293 x10^3/uL (130-400); RED BLOOD COUNT 4.01 x10^6/uL (4.38-5.82); RED CELL DISTRIBUTION WIDTH 14.9 % (9.4-14.8)
[2017-12-31 05:41] LABS: ANION GAP 9 mmol/L (5-15); CALCIUM 8.6 mg/dL (8.5-10.1); CHLORIDE 109 mmol/L (98-107); CREATININE 1.05 mg/dL (0.7-1.3)
[2017-12-31] MEDS: POTASSIUM CHLORIDE 20 MEQ in LACTATED RINGERS 1,000 ML IV SCH ×2 (05:51→22:41)
[2017-12-31] MEDS: VANCOMYCIN 50 MG/ML ORAL SUSP PO SCH (09:00)
[2017-12-31] MEDS: LABETALOL 5MG/ML, 20ML IVPush PRN ×3 (09:05→17:02)
[2017-12-31] MEDS: FAMOTIDINE 20 MG/2 ML IVPush SCH ×2 (09:05→20:08)
[2017-12-31] MEDS: ENALAPRILAT 1.25 MG/ML, 2ML IVPush PRN ×2 (09:51→16:02)
[2017-12-31] MEDS ORDERED: hydrALAzine 20 MG/ML, 1ML IVPush PRN (10:30)
[2017-12-31] MEDS ORDERED: ENALAPRILAT 1.25 MG/ML, 2ML IV ONE (11:30)
[2018-01-01 00:46] VITALS: BP 174/100
[2018-01-01] MEDS: ENALAPRILAT 1.25 MG/ML, 2ML IVPush PRN (01:01)
[2018-01-01] MEDS: LORazepam 2 MG/ML, 1ML IVPush PRN ×3 (02:20→18:07)
[2018-01-01 02:25] VITALS: BP 186/100
[2018-01-01] MEDS: LABETALOL 5MG/ML, 20ML IVPush PRN ×2 (02:30→06:16)
[2018-01-01 02:38] VITALS: BP 170/84
[2018-01-01 05:21] LABS: ANION GAP 9 mmol/L (5-15); CHLORIDE 109 mmol/L (98-107)
[2018-01-01 05:22] LABS: CREATININE 0.96 mg/dL (0.7-1.3)
[2018-01-01 05:34] LABS: BASOPHILS # (AUTO) 0.02 x10^3/uL (0-0.1); BASOPHILS % (AUTO) 0 % (0-1); EOSINOPHILS % (AUTO) 0 % (1-7); LYMPHOCYTES # (AUTO) 0.63 x10^3/uL (1-3.4); LYMPHOCYTES % (AUTO) 6 % (22-44); MD NO; MEAN CORPUSCULAR HEMOGLOBIN 30.5 pg (27.5-34.5); MEAN CORPUSCULAR VOLUME 89.7 fL (81-97); MEAN PLATELET VOLUME 8.7 fL (7.4-10.4); MONOCYTES # (AUTO) 0.81 x10^3/uL (0.2-0.8); MONOCYTES % (AUTO) 8 % (2-9); NEUTROPHILS # (AUTO) 8.97 x10^3/uL (1.8-6.8); NEUTROPHILS % (AUTO) 86 % (42-75); PLATELET COUNT 287 x10^3/uL (130-400); RED BLOOD COUNT 4.57 x10^6/uL (4.38-5.82); RED CELL DISTRIBUTION WIDTH 14.9 % (9.4-14.8)
[2018-01-01 06:40] VITALS: BP 133/73
[2018-01-01] MEDS ORDERED: PVN PER PHARMACY MC PRN (07:30)
[2018-01-01] MEDS: FAMOTIDINE 20 MG/2 ML IVPush SCH (08:29)
[2018-01-01 08:42] VITALS: BP 149/85
[2018-01-01] MEDS ORDERED: FILTER, DISP 1.2 MICRON FOR TPN/PVN IV PRN (10:30)
[2018-01-01] MEDS ORDERED: MORPHINE SULFATE 4 MG/ML, 1ML IVPush PRN (13:30)
[2018-01-01] MEDS ORDERED: SMOF TPN IV SCH (17:00)
[2018-01-01] MEDS ORDERED: AMINO ACID 10% IV SCH (17:00)
[2018-01-01] MEDS ORDERED: DEXTROSE 70% IV SCH (17:00)
[2018-01-01] MEDS ORDERED: DEXTROSE 10% 500 ML IV PRN (17:00)
[2018-01-01] MEDS ORDERED: FAT EMUL IV SCH (17:00)
[2018-01-01] MEDS ORDERED: [UNRECOGNIZED DRUG - OTHER] IV SCH (17:00)
[2018-01-01] MEDS ORDERED: DEXTROSE 50%, 50ML SYRINGE IVPush PRN (17:00)
[2018-01-01] MEDS ORDERED: INSULIN REGULAR LOW DOSE Q6H X 48HRS SQ-INSULIN SCH (21:00)
[2018-01-03] MEDS ORDERED: INSULIN REGULAR LOW DOSE QDAY SQ-INSULIN SCH (21:00)
== END 2018-01-03 02:51 | disposition expired | DRG 377 ==
LOC: ED 17:45 → EDIP 19:58 → 3NE 23:50 → 4NOR 12-30 14:38 → 4EST 12-31 12:05 → 3NW 01-01 15:22
PROVIDERS: ADMIT Internal Medicine; ATTEND Internal Medicine
PROC: 0D9670Z Drainage of Stomach with Drainage Device, Via Natural or Artificial Opening (ICD-10-PCS; principal; 2017-12-29)
DX: K92.0 Hematemesis (principal); N17.0 Acute kidney failure with tubular necrosis; E43 Unspecified severe protein-calorie malnutrition; K56.601 Complete intestinal obstruction, unspecified as to cause; E87.0 Hyperosmolality and hypernatremia; Z68.1 Body mass index [BMI] 19.9 or less, adult; D72.829 Elevated white blood cell count, unspecified; G30.9 Alzheimer's disease, unspecified; E88.09 Other disorders of plasma-protein metabolism, not elsewhere classified; F02.80 Dementia in other diseases classified elsewhere, unspecified severity, without behavioral disturbance, psychotic disturbance, mood disturbance, and anxiety; M19.90 Unspecified osteoarthritis, unspecified site; R29.6 Repeated falls; R73.9 Hyperglycemia, unspecified; K20.9 Esophagitis, unspecified; I10 Essential (primary) hypertension; Z51.5 Encounter for palliative care; Z66 Do not resuscitate; Z87.01 Personal history of pneumonia (recurrent); Z82.49 Family history of ischemic heart disease and other diseases of the circulatory system; Z85.038 Personal history of other malignant neoplasm of large intestine
CPT/HCPCS: 36415; 70450; 71045; 74018; 74177; 74250; 74340; 80048; 80053; 83036; 83605; 83690; 83735; 84100; 85014; 85018; 85025; 85610; 86850; 86900; 93005; 96361; 96374; 96375; 99285; J2270; J2405; J3480; Q9967; J2060; J7030; J7120; S0028